=== PATIENT | female | born 1960 | race Caucasian/White ===

== ENCOUNTER 2025-03-25 21:32 | Observation (INO) | payer MEDICARE, SELFPAY ==
[2025-03-25 15:41] VITALS: BP 148/83
[2025-03-25 16:06] LABS: % Basophils 0.3 % (0-2); % Eosinophils 0.2 % (0-6); % Immature Granulocytes 0.2 % (0-0.5); % Lymphocytes 33.2 % (20.5-51.1); % Monocytes 7.2 % (1.7-9.3); % Neutrophils 58.9 % (42.2-75.2); Absolute Lymphocytes 1.9 10^3/uL (1.2-3.4); Absolute Monocytes 0.4 10^3/uL (0.1-0.6); Absolute Neutrophils 3.4 10^3/uL (1.4-6.5); Hematocrit 37.7 % (37.0-47.0); Hemoglobin 12.4 g/dL (12.0-16.0); Mean Corp Hgb Conc. 32.9 g/dL (33.0-37.0); Mean Corpuscular Hgb 28.1 pg (27.0-31.0); Mean Corpuscular Volume 85.5 fL (81.0-99.0); Mean Platelet Volume 9.7 fL (7.4-10.4); Nucleated Red Blood Cells % 0 %; Platelet Count 242 10^3/uL (130-400); Red Blood Cell Count 4.41 10^6/uL (4.20-5.40); Red Cell Dist. Width 12.4 % (11.5-14.5); White Blood Cell Count 5.7 10^3/uL (4.8-10.8)
[2025-03-25 16:19] LABS: ALT (SGPT) 42 U/L (0-35); AST (SGOT) 40 U/L (14-36); Albumin 4.6 g/dl (3.5-5.0); Alkaline Phosphatase 71 U/L (38-126); Blood Urea Nitrogen 11 mg/dl (7-17); Calcium 8.8 mg/dl (8.4-10.2); Carbon Dioxide 26 mmol/L (22-30); Chloride 104 mmol/L (98-107); Glucose 97 mg/dl (70-99); Lipase 55 U/L (23-300); Potassium 4.6 mmol/L (3.5-5.1); Sodium 138 mmol/L (135-145); Total Bilirubin 0.4 mg/dl (0.2-1.3); Total Protein 6.7 g/dl (6.3-8.2); eGFR > 60.00
[2025-03-25] MEDS: NSS 1000 IV ×2 (18:23→23:16)
[2025-03-25] MEDS: ZOFRAN 4 MG IV (18:23)
--- NOTE | 2025-03-25 18:34 | ED.GENMED ---
History of Present Illness
General
Chief Complaint: Abdominal Pain
Source: patient
Exam Limitations: none
Time Seen by Provider: 03/25/25 17:44
Nursing documentation reviewed up to this point in time: agreed with
History of Present Illness
History of Present Illness:
64-year-old female presenting to the emergency department today with concerns of feeling sleepy with some abdominal pain and nausea seemingly starting after eating wild mushrooms described as a yellow Japanese blusher. She claims that she has eaten
these before without issue. Denies any chest pain shortness of breath. No diarrhea.
Review of Systems
Review of Systems
Allergies reviewed?: Yes
All Other Systems: ROS reviewed and negative except as documented in HPI and ROS
Phy Exam
Physical Exam
Physical Exam:
GENERAL: Alert , in no apparent distress
EYE: pupils equal and reactive
NECK: Supple, no significant adenopathy.
ENT: o/p clr, mmm.
CARDIAC: Regular rate and rhythm .
LUNGS: Clear breath sounds bilaterally, no acute respiratory distress, no wheezes/rales/rhonchi
ABDOMEN: Soft, without focal tenderness, no r/g, no cvat
NEUROLOGICAL: Alert and oriented, no focal neuro deficits
SKIN: Warm and dry, skin intact.
MUSCULOSKELETAL: No edema, well perfused.
PSYCH: Normal and appropriate interaction.
Course
Orders/Labs/Results
Orders:
Orders
03/25/25 15:54
Complete Blood Count/With Diff Urgent
Comprehensive Metabolic Panel Urgent
Lipase Urgent
03/25/25 18:13
0.9% Sodium Chloride 1000 ml [Nss] 1,000 ml IV BOLUS
Ondansetron Injectable [Zofran] 4 mg IV NOW STA
03/25/25 18:14
Ondansetron Injectable [Zofran] 4 mg .ROUTE .K-MED ONE
03/25/25 18:22
Creatine Phosphokinase Urgent
PT/INR [Prothrombin Time] Urgent
PTT Urgent
03/25/25 18:36
EKG [Electrocardiogram (*1)] Urgent
Reason for Study: Fatigue / Weakness
EKG- Treatment ONCE
03/25/25 20:10
CMP [Comprehensive Metabolic Panel] Urgent
Abnormal Lab Results
03/25/25
15:54
MCHC 32.9 L g/dL
(33.0-37.0)
Creatinine 0.5 L mg/dL
(0.6-1.0)
AST 40 H U/L
(14-36)
ALT 42 H U/L
(0-35)
03/25/25 15:54
03/25/25 15:54
Vital Signs
Initial and Last Documented VS:
Initial Vital Signs
Temp Pulse Resp BP Pulse Ox
98.7 F 61 20 148/83 100
03/25/25 15:41 03/25/25 15:41 03/25/25 15:41 03/25/25 15:41 03/25/25 15:41
Last Documented Vital Signs
Temp Pulse Resp BP Pulse Ox
98.7 F 58 16 148/83 100
03/25/25 15:41 03/25/25 18:20 03/25/25 18:28 03/25/25 15:41 03/25/25 18:20
MDM/Problems Addressed
MDM/Problems Addressed:
64-year-old female presenting to the emergency department today with concerns of feeling some abdominal cramping nausea sleepiness over the last few hours seem to happen after consuming wild mushrooms. She believes that the mushrooms were edible
and she was able to identify it as an edible species. Here vital signs are normal patient in no obvious distress no neurologic issues. Labs showing very slight transaminitis otherwise labs unremarkable. Poison control was contacted about the
mushroom ingestion. Their concern was it is very difficult to differentiate types of mushroom in the wild and that a toxic ingestion is possible despite the description of the mushroom. There is risk of significant liver or renal failure after
toxic ingestion. They recommend admission for repeated labs in the next 24 hours. Otherwise here she received fluids she does seem to have improving symptoms. Vital signs normal. Admitted in stable condition.
*Critical Care Note
Total Time (30-74mins, 75-104mins- exclusive of procedures): Not Applicable
ED Attending Note
-
Portions of this chart may have been created with voice recognition software.� Occasional wrong word or��sound alike� substitutions may have occurred due to the inherent limitations of voice recognition software.
Discharge Plan
Departure
Patient Disposition: Admit
Date of Disposition: 03/25/25
Time of Disposition: 20:17
Admit to: Med/Surg
Admit to doctor: Luis
Presentation/result/management discussed w/ accepting MD/DO: Hospitalist
Patient with high blood pressure during this ER visit?: No
Condition: Good
Covid-19: Not Applicable
Discharge Problem:
Mushrooms causing toxic effect
Referrals:
VERO MARTIN DO [Family Provider, Internal Medicine]
Interventions
Interventions:
*Risk Screen - Suicide Last Done: 03/25/25 15:41
*General Assessment Last Done: 03/25/25 15:41
*Neglect/Abuse Screening Last Done: 03/25/25 15:41
*ED- Fall Risk Assessment Last Done: 03/25/25 18:29
*ED COVID-19 Vaccine History Last Done: 03/25/25 18:29
YP-Awjxbg-Nitnbbgorp Assessment Last Done: 03/25/25 18:29
Discharge Date and Time
Print Language: GEORGIAN
[2025-03-25 18:41] LABS: INR 0.97; PT 13.2 Sec (11.4-14.6)
[2025-03-25 18:42] LABS: APTT 32.5 Sec (23.4-35.0)
[2025-03-25 18:55] LABS: Creatine Phosphokinase 59 U/L (30-135)
[2025-03-25 19:00] VITALS: BP 128/77
[2025-03-25 20:00] VITALS: BP 118/72
[2025-03-25 20:46] LABS: ALT (SGPT) 33 U/L (0-35); AST (SGOT) 30 U/L (14-36); Albumin 3.6 g/dl (3.5-5.0); Alkaline Phosphatase 61 U/L (38-126); Blood Urea Nitrogen 9 mg/dl (7-17); Calcium 8.4 mg/dl (8.4-10.2); Carbon Dioxide 23 mmol/L (22-30); Chloride 106 mmol/L (98-107); Glucose 103 mg/dl (70-99); Potassium 4.3 mmol/L (3.5-5.1); Sodium 134 mmol/L (135-145); Total Bilirubin 0.5 mg/dl (0.2-1.3); Total Protein 5.5 g/dl (6.3-8.2); eGFR > 60.00
[2025-03-25 21:00] VITALS: BP 115/71
--- NOTE | 2025-03-25 21:14 | HPS.HSE ---
Addendum entered and electronically signed by Kendall Smith DO 03/25/25 22:32:
Patient seen and examined independently. Agree with findings and plan as set forth by Monika Gabriel PA-C.
Patient is a 64y F with no significant PMH who presents to ED complaining of N/V and lethargy following mushroom ingestion. 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 She gathered some wild mushrooms and cooked them today. She ate around
12 noon and developed some 'foggy' sensation in the head about 30 minutes later. She then developed N/V and presented to the ED for further evaluation. Patient denies any issues with mushroom ingestions in the past.
In the ED she felt improved after Zofran. She had mild elevations in the LFTs that have since resolved.
ED contacted Poison Control who recommended overnight observation.
Ass:
Toxic Effect of Mushroom Ingestion
Plan:
Monitor overnight.
Supportive care, antiemetics if needed.
Repeat labs in AM.
Original Note:
Family Physician
-
Family Physician: VERO MARTIN, DO
Chief Complaint
-
Nausea / Vomiting
History of Present Illness
Patient is a 64 y/o female who presents with nausea and vomiting following mushroom ingestion. Patient reports she is an avid wild mushroom vikram and has never had an problems consuming wild mushrooms in the past. Today following consumption of
some cooked wild mushrooms she felt very sleepy and developed nausea/vomiting. She reports associated abdominal pain. She denies diarrhea. She denies fevers, sweats or chills.
Medical History
Past Medical History
Past Medical History: Reports Other
Additional Past Medical History:
Aortic Valve Insufficiency
Past Surgical History: Reports Other
Additional Past Surgical History:
Gastric Bypass
Social History
Tobacco: Non-smoker
Family History
Family History: Not pertinent
Allergies / Home Medications
Allergies reflects when Allergies were last updated in [facility].
Home Medications with original date entered in [facility]
Allergy/Medication List:
Allergies
Allergy/AdvReac Type Severity Reaction Status Date / Time
No Known Allergies Allergy Verified 03/25/25 15:46
Home Medications
cholecalciferol (vitamin D3) 25 mcg (1,000 unit) tablet (Vitamin D3) 25 mcg PO DAILY 03/25/25
magnesium oxide 200 mg PO DAILY 03/25/25
therapeutic multivitamin 1 tab PO DAILY 03/25/25
Review of Systems
-
A 12 point ROS was completed and negative except as noted: Yes
Constitutional: Denies Fever or Chills
Respiratory: Denies Cough or Trouble Breathing
Cardiac: Denies Chest Pain or Palpitations
Abdomen/GI: Reports See HPI
Physical Exam
Vital Signs
Vital Signs
Temp Pulse Resp BP Pulse Ox
98.7 F 61 13 115/71 99
03/25/25 15:41 03/25/25 21:00 03/25/25 21:00 03/25/25 21:00 03/25/25 21:00
Physical Exam
General: Comfortable and Conversant
HEENT: Anicteric and Moist mucous membranes
Respiratory: Clear and Non Labored Respirations
Cardiac: S1/S2 and Regular Rhythm
GI: Soft and Non Tender
Rectal: Deferred by Provider
Musculoskeletal: No Clubbing, No Cyanosis and No Edema
Skin: Warm and Dry
Neuro: Awake, Alert, Oriented and Nonfocal/grossly intact
Psych: Calm
Laboratory Results
-
03/25/25 15:54
03/25/25 20:18
Laboratory Results
PT 13.2 Sec (11.4-14.6) 03/25/25 18:22
INR 0.97 03/25/25 18:22
APTT 32.5 Sec (23.4-35.0) 03/25/25 18:22
Total Bilirubin 0.5 mg/dl (0.2-1.3) 03/25/25 20:18
AST 30 U/L (14-36) 03/25/25 20:18
ALT 33 U/L (0-35) 03/25/25 20:18
Alkaline Phosphatase 61 U/L (38-126) 03/25/25 20:18
Lipase 55 U/L (23-300) 03/25/25 15:54
Data Reviewed
-
Lab Data: Labs Reviewed by me
Impression/Plan
-
Toxic Effect of Mushroom Ingestion
-ED reviewed with poison control who recommended monitoring and repeat labs
-Allow clears liquids - Advance diet as tolerated
-Repeat Labs in AM
DVT proph: SCDs
Code Status: Full Code
[2025-03-25 22:00] VITALS: BP 114/57
[2025-03-25 23:00] VITALS: BP 107/61
[2025-03-26 06:49] LABS: Hematocrit 32.1 % (37.0-47.0); Hemoglobin 10.9 g/dL (12.0-16.0); Mean Corpuscular Hgb 28.3 pg (27.0-31.0); Mean Corpuscular Volume 83.4 fL (81.0-99.0); Mean Platelet Volume 9.6 fL (7.4-10.4); Platelet Count 196 10^3/uL (130-400); Red Blood Cell Count 3.85 10^6/uL (4.20-5.40); Red Cell Dist. Width 12.5 % (11.5-14.5); White Blood Cell Count 4.7 10^3/uL (4.8-10.8)
[2025-03-26 07:08] VITALS: BP 122/83
[2025-03-26 07:18] LABS: ALT (SGPT) 36 U/L (0-35); AST (SGOT) 32 U/L (14-36); Albumin 3.5 g/dl (3.5-5.0); Alkaline Phosphatase 54 U/L (38-126); Blood Urea Nitrogen 11 mg/dl (7-17); Calcium 8.1 mg/dl (8.4-10.2); Carbon Dioxide 23 mmol/L (22-30); Chloride 110 mmol/L (98-107); Glucose 71 mg/dl (70-99); Sodium 135 mmol/L (135-145); Total Bilirubin 0.7 mg/dl (0.2-1.3); Total Protein 5.4 g/dl (6.3-8.2); eGFR > 60.00
[2025-03-26] MEDS: NSS 1000 IV (10:22)
--- NOTE | 2025-03-26 11:56 | W.PN.HOSP.TC ---
Today's Communication/Plan
-
Monitor vital signs
see plan
Symptoms resolved after fluids
Denies any nausea, vomiting, dizziness
Discharge today
Assessment / Plan
Assessment / Plan
General: Comfortable and Conversant
HEENT: Anicteric and Moist mucous membranes
Respiratory: Clear and Non Labored Respirations
Cardiac: S1/S2 and Regular Rhythm
GI: Soft and Non Tender
Musculoskeletal: No Edema
Neuro: Awake, Alert, Oriented and Nonfocal/grossly intact
Psych: Calm
Toxic Effect of Mushroom Ingestion
Suspect also dehydration. Now improved after fluids. Tolerated regular diet.
-ED reviewed with poison control who recommended monitoring and repeat labs
LFTs improving, repeat LFTs outpatient with PCP
History of gastric bypass
DVT proph: SCDs
Code Status: Full Code
Anticipated Discharge: Today
Subjective/Interval History
-
Date of Service: March 26, 2025
Denies dizziness, fogginess
Objective Data
-
Labs:
Laboratory Results
03/26/25
06:39
WBC 4.7 L
Hgb 10.9 L
Hct 32.1 L
Plt Count 196
Sodium 135
Potassium 4.0
Chloride 110 H
Carbon Dioxide 23
BUN 11
Creatinine 0.5 L
Glucose 71
Calcium 8.1 L
Total Bilirubin 0.7
AST 32
ALT 36 H
Alkaline Phosphatase 54
Vital Signs:
Vital Signs
Temp Pulse Resp BP Pulse Ox
98.2 F 61 16 122/83 99
03/26/25 07:08 03/26/25 07:08 03/26/25 07:08 03/26/25 07:08 03/26/25 07:08
I&O
03/25/25 03/26/25 03/27/25
06:59 06:59 06:59
Intake Total 700 / 700
Balance 700 / 700
--- NOTE | 2025-03-26 11:59 | W.DCSUMMARY ---
Discharge Summary
Discharge Data
Date of Admission: 03/25/25
Date of Discharge: 03/26/25
-
Pending Results: No
Hospital Course
64-year-old female with history of gastric bypass came to the hospital with nausea, vomiting, fogginess and dehydration after ingesting wild mushroom. Was not controlled was contacted for admission who recommended observation. Patient was hydrated
with IV fluids which improved her symptoms dramatically. She was able to tolerate regular diet prior to discharge. Her LFTs were mildly elevated and she was instructed to follow-up with PCP for repeat CMP outpatient. Since patient symptoms
improved, she was then discharged home with instructions to follow-up with all her physicians outpatient.
Discharge Plan
-
Patient Disposition: Home (Routine Discharge)
Discharge Diagnosis/Procedures: Wild mushroom ingestion with nausea and vomiting
Dehydration
Diet: As tolerated
Activity: As tolerated
Driving Restrictions: As prior to admission
Bathing Restrictions: None
Blood Work: CMP next week with primary care provider
Referrals:
VERO MARTIN DO [Family Provider, Internal Medicine] - in less than 1 week
Prescriptions:
Continued
therapeutic multivitamin Tablet
1 tab PO DAILY
cholecalciferol (vitamin D3) [Vitamin D3] 25 mcg (1,000 unit) Tablet
25 mcg PO DAILY
magnesium oxide 200 mg magnesium Tablet
200 mg PO DAILY
Discharge Orders:
Discharge Patient (As Directed); Ordered 03/26/25
Ordered By: Taqueria Chavez
Discharge Date and Time
Discharge Date/Time: 03/26/25 12:23
Print Language: [email or web address]
--- NOTE | 2025-03-26 13:05 | CM ---
ED CM met with pt bedside
DC order noted
Indep in room and no dc needs noted
MORALES verbally reviewed- copy provided
Discharge Disposition- home with spouse, he will transport
== END 2025-03-26 12:23 | disposition home or self-care (01) ==
LOC: ED 21:32
PROVIDERS: Emergency Medicine; Physician Assistant; Physician Assistant Medical; ADMITTING PHYSICIAN Hospitalist; ATTENDING PHYSICIAN Internal Medicine; EMERGENCY PHYSICIAN Student in an Organized Health Care Education/Training Program; FAMILY PHYSICIAN Internal Medicine
DX: T62.0X1A Toxic effect of ingested mushrooms, accidental (unintentional), initial encounter (principal); Y92.009 Unspecified place in unspecified non-institutional (private) residence as the place of occurrence of the external cause; R10.9 Unspecified abdominal pain; R11.2 Nausea with vomiting, unspecified; R53.83 Other fatigue; R53.1 Weakness; R74.01 Elevation of levels of liver transaminase levels; I35.1 Nonrheumatic aortic (valve) insufficiency; R00.1 Bradycardia, unspecified; E86.0 Dehydration; Z98.84 Bariatric surgery status
CPT/HCPCS: 80053; 82550; 83690; 85025; 85027; 85610; 85730; 93005; G0378